=== PATIENT | female | born 1930 | race Caucasian/White ===

== ENCOUNTER 2018-09-01 09:56 | Observation (INO) | payer MEDICARE ==
[~2018-09-01] VITALS: Ht 175.3 cm; Wt 81.0 kg
[2018-09-01] MEDS ORDERED: LOSARTAN POTASS50 MG PO (10:22)
[2018-09-01] MEDS ORDERED: ATORVASTATIN CA10 MG PO (10:22)
[2018-09-01] MEDS ORDERED: LEVOTHYROXINE100 MCG PO (10:22)
[2018-09-01] MEDS ORDERED: FUROSEMIDE INJ 10 MG/ML 4 ML VIAL IV ONE (10:45)
[2018-09-01 11:04] LABS: BASOPHILS # (AUTO) 0.1 (0.0-0.1); BASOPHILS % 0.5 % (0.0-1.0); EOSINOPHILS # (AUTO) 0.1 (0.0-0.4); EOSINOPHILS % 0.9 % (0.0-6.0); HEMATOCRIT 36.1 % (34.2-44.1); HEMOGLOBIN 11.3 g/dL (12.0-16.0); LYMPHOCYTES % 21.8 % (18.0-39.1); MEAN CORPUSCULAR HEMOGLOBIN 28.3 pg (28-32); MEAN CORPUSCULAR HGB CONC 31.3 g/dL (31-35); MEAN CORPUSCULAR VOLUME 90.5 fL (81-99); MONOCYTES # (AUTO) 0.6 (0.2-0.8); MONOCYTES % 6.5 % (4.4-11.3); NEUTROPHILS # (AUTO) 6.4 (2.1-6.9); NEUTROPHILS % 69.9 % (38.7-80.0); PLATELET COUNT 271 x10e3/uL (140-360); RED BLOOD COUNT 3.99 x10e6/uL (3.6-5.1); RED CELL DISTRIBUTION WIDTH 15.9 % (11.7-14.4)
--- NOTE | 2018-09-01 11:06 | Diagnostic Imaging Report ---
PROCEDURE: CHEST SINGLE (PORTABLE) COMPARISON: None. INDICATIONS: SHORTNESS OF BREATH FINDINGS: LUNGS: Moderate pulmonary edema. PLEURA: No effusions or pneumothorax. HEART & MEDIASTINUM: The heart is enlarged. Calcification within the aorta. BONES & SOFT TISSUES: No acute findings. CONCLUSION: Cardiomegaly with moderate pulmonary edema. Donovan Fu D.O. Dictated by: Donovan Fu D.O. on 09/01/2018 at 11:17 Electronically approved by: Donovan Fu D.O. on 09/01/2018 at 11:17
[2018-09-01 11:13] LABS: ALBUMIN 3.8 g/dL (3.5-5.0); ALBUMIN/GLOBULIN RATIO 1.3 (0.8-2.0); ANION GAP 17.7 mmol/L (8-16); CALCIUM 9.2 mg/dL (8.4-10.2); CREATININE, SERUM 1.05 mg/dL (0.57-1.11); POTASSIUM 3.7 mmol/L (3.5-5.1)
[2018-09-01 11:19] LABS: ABG HCO3 19 mmol/L (23-28); ABG PCO2 26 mmHg (41-51); ABG PH 7.47 (7.31-7.41); ABG PO2 102 mmHg (80-105)
[2018-09-01 11:20] LABS: CREATINE KINASE MB 2.1 ng/mL (0-5.0)
[2018-09-01] MEDS ORDERED: ASPIRIN 81 MG CHEW TAB PO ONE (11:30)
--- NOTE | 2018-09-01 13:05 | NUR ---
Waldemar placed on pt bed.
--- OUTSIDE RECORDS SUMMARY | 2018-09-01 14:10 | XMS REPORT ---
[facility] Address Unknown Phone Unavailable Care Team Providers Care [employer] Librarian Name Role Phone Rosibel ARTEAGA Unavailable Unavailable Problems This patient has no known problems. Allergies, Adverse Reactions, Alerts This patient has no known allergies or adverse reactions. Medications This patient has no known medications. Results Test Description Test Time Test Comments Text Results Atomic Results Result Comments CHEST SINGLE (PORTABLE) 2018-09-01 11:17:00 [facility] [address] [place] [address] Patient Name: TABBY BROCK MR #: [id number] : 1930 Age/Sex: 88/F Req #: [id number] Adm Physician: Ordered by: BLAS ARTEAGA MD Report #: [id number] Location: ER Room/Bed: Procedure: [id number] DX/CHEST SINGLE (PORTABLE) Exam Date: 09/01/18 Exam Time: 1041 REPORT STATUS: Signed PROCEDURE: CHEST SINGLE (PORTABLE) COMPARISON: None. INDICATIONS: SHORTNESS OF BREATH FINDINGS: LUNGS: Moderate pulmonary edema. PLEURA: No effusions or pneumothorax. HEART MEDIASTINUM: The heart is enlarged. Calcification within the aorta. BONES SOFT TISSUES: No acute findings. CONCLUSION: Cardiomegaly with moderate pulmonary edema. Baltazar Omer D.O. Dictated by: Baltazar Omer D.O. on 09/01/2018 at 11:17 Electronically approved by: Baltazar Omer D.O. on 09/01/2018 at 11:17 Dictated By: BALTAZAR OMER DO 111 Transcribed By: SARAH on 09/01/181116 COPY TO: BLAS ARTEAGA MD
--- NOTE | 2018-09-01 16:17 | NUR ---
Pt resting comfortably. RR even and unlabored. NAD Noted. Vitals stable at the present time. Call light remains in reach. Family at bedside. Bed rails up x2. Will continue to monitor.
[2018-09-01] MEDS: FUROSEMIDE INJ 10 MG/ML 4 ML VIAL IV SCH (17:38)
[2018-09-01 18:54] LABS: CREATINE KINASE MB 2.4 ng/mL (0-5.0)
--- NOTE | 2018-09-01 19:18 | NUR ---
Walking rounds with CASSIDY Quinn.
--- NOTE | 2018-09-01 20:30 | NUR ---
Patient arrived to floor via stretcher. Patient Admit and assessment completed. IV to right AC dry and intact. Order for smoke Cess. and patient has never smoked. Patient AAOx3. Family at bedside.
[2018-09-02] VITALS (7 sets, daily range): BP systolic 129–167; BP diastolic 67–78
--- NOTE | 2018-09-02 02:35 | NUR ---
Blood draw for 3rd cardiac enz. Enz. neg x2. Patient tolerated blood draw.
[2018-09-02 03:43] LABS: CREATINE KINASE MB 2.8 ng/mL (0-5.0)
--- NOTE | 2018-09-02 04:18 | NUR ---
Patient resting quitly at this time. Continue monitor.
[2018-09-02] MEDS ORDERED: LEVOTHYROXINE SODIUM 100 MCG TAB PO SCH (09:00)
[2018-09-02] MEDS ORDERED: ATORVASTATIN 10 MG TAB PO SCH ×2 (09:00→21:00)
--- NOTE | 2018-09-02 09:29 | NUR ---
CASE MANAGEMENT INITIAL ASSESSMENT Cna Ltc to bedside to discuss plan of care with patient/family. CM/SW role and care transitions discussed. Anticipated discharge plan discussed along with duration of care. CM discussed patients right to make decisions in care. CM/SW work hours given. Patient lives: PATIENT LIVES IN [place], [place] WITH IN 1 STORY HOME Admit/Transfer: ED POA/Emergency contact: TRELL BROCK [phone] Current/Previous Home Health: NONE PCP/Follow-up Care: N/A; TRYING TO FIND GOOD PCP Current/Previous DME: [facility]. Other Services: NO Employment Status: RETIRED; [employer] Areas of Concerns: NONE Referral Needs: POSSIBLE HOME HEALTH Education Needs: NONE IMM/CHANG given and signed (if applicable): CHANG Goal for discharge: DISCHARGE HOME WITH NO NEEDS CM left business card at the bedside with contact information. Name and number was also written on the patients whiteboard. Patient verbalized understanding of discussion. CM will follow-up with ongoing discharge and transition of care needs.
[2018-09-02] MEDS ORDERED: METOPROLOL TARTRATE 25 MG TAB PO SCH (09:30)
--- NOTE | 2018-09-02 09:30 | NUR ---
Pt received resting in bed with family at bedside. Alert and oriented x4 but visually impaired. No SOB or discomfort noted or voiced. Oriented to staff and surroundings. Encouraged to press call salamanca if help needed. Call salamanca within reach. All meds given as ordered. Will monitor
[2018-09-02] MEDS: LOSARTAN POTASSIUM 100 MG TAB PO SCH (09:36)
[2018-09-02] MEDS: FUROSEMIDE INJ 10 MG/ML 4 ML VIAL IV SCH ×2 (09:36→17:24)
--- NOTE | 2018-09-02 10:35 | NUR ---
Visit made by the Spiritual Care Department Pastoral Visitor, Taz Alonzo. PV provided pastoral presence, hospitality, and supportive listening. Pastoral Visitor informed pt/family of the scope of Glaucoma Specialist Services and availability. [employer] Spiritual Care Department O: [phone] Pager: [phone] ([phone] number calling from)
[2018-09-02 11:57] LABS: CREATINE KINASE MB 2.5 ng/mL (0-5.0)
--- NOTE | 2018-09-02 13:01 | NUR ---
Pt educated regarding smoking cessation but pt stated that she does not smoke
--- NOTE | 2018-09-02 13:04 | Consultation ---
DATE OF CONSULTATION: September 01, 2018 REASON FOR CONSULTATION: Chest pain. CONSULTING PHYSICIAN: Dr. Gusman. HPI: This is a pleasant 88-year-old female who presented with shortness of breath. According to the patient, for the last week she has been having shortness of breath, unable to sleep at night and unable to lay flat. She stated she had an appointment with cardiology, but was unable to make it because the shortness of breath got worse that she decided to come into the emergency room for evaluation. She denied any palpitation, any diaphoresis, any headache, nausea, or vomiting. She has a history of high blood pressure, hypothyroidism and compliant with her medications. Troponin x3 was negative. EKG showed normal sinus rhythm with no ST abnormalities. Chest x-ray showed cardiomegaly with moderate pulmonary edema. BNP was 2590. 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 PAST SURGICAL HISTORY: Eye surgery, hysterectomy, and foot surgery. FAMILY HISTORY: Positive for hypertension. SOCIAL HISTORY: No smoking. No drinking. She lives at home with her . MEDICATIONS: She was on Synthroid, atorvastatin, and losartan. ALLERGIES: SHE IS NOT ALLERGIC TO ANY MEDICATION. REVIEW OF SYSTEMS: Negative except those mentioned above. She was positive for shortness of breath. PHYSICAL EXAMINATION VITAL SIGNS: Temperature 97, heart rate 84, blood pressure 138/67, respirations 18, oxygen saturation 98% on room air. GENERAL: She is awake, alert, and oriented x3. HEENT: Mucous membrane moist. NECK: Supple. LUNGS: Bilateral with decreased breath sounds. CARDIOVASCULAR: S1, S2 present. ABDOMEN: Soft. NEUROLOGICAL: Intact. EXTREMITIES: Bilateral lower with no edema. LABS: Sodium 136, potassium 3.7, chloride 104, CO2 of 18, BUN 15, creatinine 1.06, glucose 126. White blood cell 9.24, hemoglobin 11.3, hematocrit 36.1, platelets 271. IMPRESSION 1. Congestive heart failure, type unknown. 2. Hypertension. 3. Hypothyroidism. 4. Hyperlipidemia. PLAN 1. She is pending echocardiogram to assess the LV and the valve function. 2. Will go ahead and add low-dose beta benny. Continue diuretic and MAHENDRA inhibitor. 3. Low sodium diet. 4. Put her on 2 liters fluid restriction. 5. Continue her home medications. Further cardiac workup pending clinical course. Thank you for this consultation. DICTATED BY: Sara Dillard NP Job#: [id number] ASHLI
--- NOTE | 2018-09-02 13:11 | NUR ---
CHANG GIVEN WITH EXPLANATION. ORIGINAL COPY SIGNED AND PLACED IN CHART AND COPY OF ORIGINAL DOCUMENT GIVEN TO PATIENT AND PLACED IN CARE TRANSITION FOLDER AT BEDSIDE. PATIENT WITH NO FURTHER QUESTIONS. CM CONTACT INFO GIVEN TO PATIENT AT BEDSIDE.
--- NOTE | 2018-09-02 18:48 | NUR ---
Pt resting comfortably in bed with family at bedside. Call salamanca within reach. No c/o SOB or distress noted or voiced. Will endorse to next shift
--- NOTE | 2018-09-02 19:40 | NUR ---
Received change of shift report from AM nurse. Walking rounds completed.
--- NOTE | 2018-09-03 | NUR ---
Patient AAOx3 Ambulating in the room with no difficulty noted.IV intact. Patient denies pain at this time. Continue monitor.
[2018-09-03 00:46] VITALS: BP 145/74
--- NOTE | 2018-09-03 04:20 | NUR ---
Patient resting quitly at this time. No noted pain or discomfort.
[2018-09-03 05:10] LABS: BASOPHILS % 0.5 % (0.0-1.0); EOSINOPHILS # (AUTO) 0.3 (0.0-0.4); EOSINOPHILS % 4.3 % (0.0-6.0); HEMATOCRIT 39.3 % (34.2-44.1); HEMOGLOBIN 12.4 g/dL (12.0-16.0); LYMPHOCYTES % 26.3 % (18.0-39.1); MEAN CORPUSCULAR HEMOGLOBIN 28.9 pg (28-32); MEAN CORPUSCULAR HGB CONC 31.6 g/dL (31-35); MEAN CORPUSCULAR VOLUME 91.6 fL (81-99); MONOCYTES # (AUTO) 0.7 (0.2-0.8); MONOCYTES % 8.8 % (4.4-11.3); NEUTROPHILS # (AUTO) 4.5 (2.1-6.9); NEUTROPHILS % 59.8 % (38.7-80.0); PLATELET COUNT 202 x10e3/uL (140-360); RED BLOOD COUNT 4.29 x10e6/uL (3.6-5.1); RED CELL DISTRIBUTION WIDTH 15.8 % (11.7-14.4)
[2018-09-03 05:25] VITALS: BP 146/70
[2018-09-03 05:29] LABS: ANION GAP 17.1 mmol/L (8-16); CALCIUM 9.1 mg/dL (8.4-10.2); CREATININE, SERUM 1.15 mg/dL (0.57-1.11); MAGNESIUM 2.1 MG/DL (1.3-2.1); POTASSIUM 3.1 mmol/L (3.5-5.1)
[2018-09-03] MEDS ORDERED: LEVOTHYROXINE SODIUM 100 MCG TAB PO SCH (06:00)
--- NOTE | 2018-09-03 06:41 | NUR ---
Called Dr Mendoza to get ok to d/c per Dr Gusman. OK to d/c per Dr Mendoza and f/u in one week.
--- NOTE | 2018-09-03 07:10 | NUR ---
RCD PT AT BED PT IS ALERT AND ORIENTED PT RESTING ON BED NO SIGNS OF ANY DISTRESS NOTED IV PATENT BED LOW AND LOCKED CALL LIGHT IN REACH
--- NOTE | 2018-09-03 07:45 | NUR ---
PAGED AND NOTIFIED POTASSIUM LEVEL TO DR GARCIA GOT NEW ORDERS
[2018-09-03 07:46] VITALS: BP 140/79
[2018-09-03] MEDS ORDERED: POTASSIUM CHLORIDE 20 MEQ TAB CR PO NR (08:00)
[2018-09-03] MEDS: FUROSEMIDE INJ 10 MG/ML 4 ML VIAL IV SCH (08:51)
[2018-09-03] MEDS: LOSARTAN POTASSIUM 100 MG TAB PO SCH (08:52)
[2018-09-03] MEDS ORDERED: METOPROLOL TARTRATE 25 MG TAB PO SCH (09:00)
[2018-09-03 09:04] VITALS: BP 140/79
[2018-09-03] MEDS ORDERED: FUROSEMIDE40 MG PO (09:36)
[2018-09-03] MEDS ORDERED: METOPROLOL SUCC25 MG PO (09:36)
[2018-09-03] MEDS ORDERED: POTASSIUM CHLO10 ME1 PO (09:37)
--- NOTE | 2018-09-03 09:54 | NUR ---
PT WENT HOME IN SAFE CONDITION WITH HER
== END 2018-09-03 09:54 | disposition home or self-care (01) ==
LOC: ER 09:56 → ERHOLD 14:08 → MED/SURG3 18:44 → ERHOLD 19:14 → MED/SURG2 19:18
PROVIDERS: ADMIT Internal Medicine; ATTEND Internal Medicine
DX: I11.0 Hypertensive heart disease with heart failure (principal); I50.23 Acute on chronic systolic (congestive) heart failure; E78.5 Hyperlipidemia, unspecified; E03.9 Hypothyroidism, unspecified; H54.62 Unqualified visual loss, left eye, normal vision right eye
CPT/HCPCS: 36415 ×3; 36600; 71045; 80048; 80053; 82550 ×2; 82553 ×2; 82805; 83735; 83880 ×2; 84484 ×2; 85025 ×2; 93005; 93306; 99284; G0378 ×3; J1940 ×3